=== PATIENT | female | born 1980 | race Caucasian/White ===

== ENCOUNTER 2021-02-15 16:07 | Emergency (ER) | payer OTHER ==
[~2021-02-15] VITALS: Ht 162.6 cm; Wt 72.6 kg
[2021-02-15 16:30] VITALS: BP 127/79
[2021-02-15 16:37] VITALS: BP 127/79
--- NOTE | 2021-02-15 16:38 | ER.PDOC ---
General Chief Complaint: Abdomen Pain Stated Complaint: FLANK PAIN Time seen by MD: 16:37 Source: patient Exam Limitations: no limitations History of Present Illness Initial Comments Bilateral flank pain for the last couple of days. No fever or chills. No nausea, vomiting or diarrhea. Severity/Quality: moderate, sharpness Radiation: no radiation Associated Symptoms: denies symptoms Exacerbated by: nothing Relieved By: nothing Vital Signs First Vital Signs Date Time Temp Pulse Resp B/P (MAP) Pulse Ox O2 Delivery O2 Flow Rate FiO2 02/15/21 16:30 98.9 91 18 02/15/21 16:30 97 02/15/21 16:37 127/79 (95) Room Air Last Vital Signs Date Time Temp Pulse Resp B/P (MAP) Pulse Ox O2 Delivery O2 Flow Rate FiO2 02/15/21 16:37 98.9 91 18 127/79 (95) 97 Room Air Past Medical History Medical History: no pertinent history Surgical History: hysterectomy Family History Significant Family History: no pertinent family hx Social History Smoking: non-smoker Alcohol Use: none Drug Use: none Constitutional: no symptoms reported EENTM: no symptoms reported Respiratory: no symptoms reported Cardiovascular: no symptoms reported Gastrointestinal: no symptoms reported Genitourinary: see HPI All Other Systems: Reviewed and Negative Physical Exam General Appearance: No Apparent Distress, WD/WN Neck: Non-Tender, Full Range of Motion, Supple, Normal Inspection Respiratory: chest non-tender, lungs clear, normal breath sounds, no respiratory distress, no accessory muscle use Cardiovascular: Normal Peripheral Pulses, Regular Rate, Rhythm, No Edema, No Gallop, No JVD, No Murmur, Tachycardia Gastrointestinal: Normal Bowel Sounds, Non Tender, Soft Back: CVA Tenderness (R), CVA Tenderness (L) Extremities: Normal Range of Motion, Non-Tender, Normal Inspection, No Pedal Edema, No Calf Tenderness, Normal Capillary Refill, Pelvis Stable Neurologic/Psychiatric: clinic manager II-XII NML as Tested, No Motor/Sensory Deficits, Alert, Normal Mood/Affect, Oriented x 3 Skin: Normal Color, Warm/Dry Lymphatic: No Adenopathy Results/Orders Results/Orders Orders - MICHAEL AHN MD Cbc With Auto Diff (02/15/21 16:35) Comprehensive Metabolic Panel (02/15/21 16:35) Urinalysis (02/15/21 16:35) Ct Abd/Pelvis Wo Iv Contrast (02/15/21 16:35) Urine Culture (02/15/21 16:35) Ceftriaxone Sodium (Rocephin) (02/15/21 17:32) Vital Signs Date Time Temp Pulse Resp B/P (MAP) Pulse Ox O2 Delivery O2 Flow Rate FiO2 02/15/21 16:37 98.9 91 18 127/79 (95) 97 Room Air 02/15/21 16:30 98.9 91 18 97 02/15/21 16:30 98.9 91 18 Laboratory Tests Test 02/15/21 16:30 02/15/21 16:35 Urine Collection Type UNKNOWN Urine Color ORANGE Urine Appearance CLEAR Urine Bilirubin NEGATIVE (NEGATIVE) Urine Ketones NEGATIVE (NEGATIVE) Urine Specific [place] 1.015 (1.005-1.030) Urine pH 7.0 (4.5-8.0) Urine Protein 1+ (NEGATIVE) H Urine Urobilinogen 0.2 E.U./dL (0.2) Urine Nitrate POSITIVE (NEGATIVE) H Urine Leukocyte Esterase 3+ (NEGATIVE) H Urine Glucose (Auto)(UA) NEGATIVE (NEGATIVE) Urine Blood 3+ (NEGATIVE) H Urine RBC 2-5 RBC/HPF (NONE SEEN) Urine WBC TooNumerousToCount WBC/HPF (0-2) Urine Squamous Epithelial Cells FEW (<=FEW) Urine Bacteria FEW (NONE SEEN) H White Blood Count 12.0 10^3/uL (4.5-11.0) H Red Blood Count 4.45 10^6/uL (4.00-5.20) Hemoglobin 12.3 g/dL (12.0-15.0) Hematocrit 38.9 % (36.0-46.0) Mean Corpuscular Volume 87.4 fL (78-100) Mean Corpuscular Hemoglobin 27.6 pg (26-34) Mean Corpuscular Hemoglobin Concent 31.6 g/dL (33-36.5) L Red Cell Distribution Width 13.2 % (11.5-14.5) Platelet Count 380 10^3/uL (150-400) Mean Platelet Volume 11.0 fL (7.8-11.0) Neutrophils (%) (Auto) 69.9 % (41.0-85.0) Lymphocytes (%) (Auto) 23.6 % (24.0-44.0) L Monocytes (%) (Auto) 5.5 % (5.0-12.0) Neutrophils # (Auto) 8.4 10^3/uL (1.8-7.7) H Lymphocytes # (Auto) 2.82 10^3/uL1 (1.0-4.8) Monocytes # (Auto) 0.7 10^3/uL (0.3-0.8) Absolute Immature Granulocyte (auto 0.02 10^3 u/L (0-2) Absolute Eosinophils (auto) 0.1 10^3/uL (0.0-0.2) Immature Granulocytes % 0.20 % (0.00-0.50) Eosinophils % 0.5 % (0.0-5.0) Basophils % 0.3 % (0.0-0.2) H Basophils # 0.0 10^3/uL (0.0-0.1) Sodium Level 139 mmol/L (132-145) Potassium Level 3.3 mmol/L (3.6-5.2) L Chloride Level 101.0 mmol/L (96-109) Carbon Dioxide Level 28.9 mmol/L (20.0-32) Anion Gap 12.4 Blood Urea Nitrogen 4 mg/dL (7-18) L Creatinine 0.88 mg/dL (0.59-1.40) Estimated GFR () 87.0 (>/=60) Est GFR (CKD-EPI)(Non-Afr [place]) 71.9 (>/=60) BUN/Creatinine Ratio 4.0 Glucose Level 100 mg/dL (70-110) Calcium Level 8.5 mg/dL (8.4-10.5) Total Bilirubin 0.3 mg/dL (0.2-1.0) Aspartate Amino Transferase (AST) 17 U/L (0-35) Alanine Aminotransferase (ALT) 19 U/L (12-78) Alkaline Phosphatase 103 U/L (50-136) Total Protein 8.0 g/dL (6.4-8.2) Albumin 3.7 g/dL (3.4-5.0) Globulin 4.3 Albumin/Globulin Ratio 0.860 Progress Progress Patient does not have a fever. WBC is 12 without left shift. Chemistry show a potassium of 3.3. Rest of chemistry is normal. CT abdomen/pelvis shows no acute abnormality. Patient received a gram of Rocephin and will be discharged home on Bactrim. ER DEPART Departure Time of Disposition: 17:35 Disposition: 01 HOME / SELF CARE / HOMELESS Impression: Primary Impression: UTI (urinary tract infection) Condition: Stable Referrals: SANG ALVA (PCP) PRIMARY CARE PROVIDER Additional Instructions: Bactrim DS Ibuprofen Follow-up with your PCP in 2 to 3 days Return to ED if worsening symptoms or concerns Duration or Time Spent with Pa: 45 min Problem Qualifiers Primary Impression: UTI (urinary tract infection) Urinary tract infection type: site unspecified Hematuria presence: with hematuria Qualified Codes: N39.0 - Urinary tract infection, site not specified; R31.9 - Hematuria, unspecified MICHAEL AHN MD Feb 15, 2021 16:38
[2021-02-15 16:41] LABS: BILIRUBIN,URINE NEGATIVE (NEGATIVE); UROBILINOGEN,URINE 0.2 E.U./dL (0.2)
[2021-02-15 16:41] LABS: BASOPHIL % 0.3 % (0.0-0.2); EOSINOPHIL # 0.1 10^3/uL (0.0-0.2); EOSINOPHIL % 0.5 % (0.0-5.0); LYMPHOCYTES # 2.82 10^3/uL1 (1.0-4.8); LYMPHOCYTES % 23.6 % (24.0-44.0); MEAN CORP HGB 27.6 pg (26-34); MONOCYTES # 0.7 10^3/uL (0.3-0.8); MONOCYTES % 5.5 % (5.0-12.0); NEUTROPHIL # 8.4 10^3/uL (1.8-7.7); NEUTROPHILS % 69.9 % (41.0-85.0); PLATELET COUNT 380 10^3/uL (150-400); RED CELL DISTRIBUTION WIDTH 13.2 % (11.5-14.5)
[2021-02-15 16:55] LABS: CALCIUM 8.5 mg/dL (8.4-10.5); CARBON DIOXIDE 28.9 mmol/L (20.0-32)
--- NOTE | 2021-02-15 17:11 | DIREP ---
PROCEDURE:CT ABDOMEN/PELVIS W/O CONTRAST COMPARISON:None. INDICATIONS:Bilateral flank pain, NO HX, HEMATURIA TECHNIQUE:Axial images were created through the abdomen and pelvis without intravenous contrast material. No oral contrast was administered. Sagittal and coronal reconstructions were performed from source images. FINDINGS: LUNG BASES:Normal. No visible pulmonary or pleural disease. LIVER:Normal. No significant liver lesions are identified. BILIARY:Apparent cholecystectomy PANCREAS:Normal. No lesion, fluid collection, ductal dilatation, or atrophy. SPLEEN:Normal. No enlargement or focal lesion. ADRENALS:Normal. No mass or enlargement. URINARY TRACT:Normal. No focal lesions or hydronephrosis. AORTA/VASCULAR:Normal. No aneurysm. RETROPERITONEUM:Normal. No mass or adenopathy. BOWEL/MESENTERY:The appendix is visualized and appears normal. There is no intestinal obstruction, free fluid, free air or mesenteric inflammatory changes. ABDOMINAL WALL:Normal. No mass or hernia. PELVIC ORGANS:The uterus is surgically absent. No visible mass. BONES:Normal for age. No bony lesion or acute fracture. OTHER:Negative. CONCLUSION:No acute disease. Dictated by: Floyd Ortiz MD on 02/15/2021 at 05:03 PM
[2021-02-15] MEDS ORDERED: ROCEPHIN 1,000 MG in NS 100ML 100 ML IV STA (17:32)
[2021-02-15] MEDS ORDERED: ROCEPHIN ONE (17:35)
[2021-02-15 17:50] VITALS: BP 121/71
== END 2021-02-15 17:50 | disposition home or self-care (01) ==
LOC: ER 16:07
DX: N39.0 Urinary tract infection, site not specified (principal); Z90.710 Acquired absence of both cervix and uterus
CPT/HCPCS: 36415; 74176; 80053; 81001; 85025; 87086; 96365; 99284; J0696 ×2

== ENCOUNTER 2024-12-15 17:25 | Emergency (ER) | payer OTHER ==
[~2024-12-15] VITALS: Ht 160 cm; Wt 72.6 kg
[2024-12-15 17:25] VITALS: BP 132/95; PULSE 80; RESP 18; TEMP 98.3; O2SAT 100
[2024-12-15] MEDS ORDERED: LIDOCAINE 1% VIAL ONE (17:48)
[2024-12-15] MEDS ORDERED: ZOFRAN ODT ONE (18:01)
[2024-12-15] MEDS: ZOFRAN ODT SL STA (18:05)
[2024-12-15 18:15] VITALS: BP 131/85; PULSE 80; RESP 18; TEMP 98.3; O2SAT 99
[2024-12-15] MEDS ORDERED: TRIPLE ANTIBIOTIC OINTMENT PKT TP ONE (18:18)
[2024-12-15] MEDS: NORCO 7.5 PO STA (18:32)
[2024-12-15] MEDS: KEFLEX PO STA (18:32)
[2024-12-15] MEDS ORDERED: KEFLEX PO ONE (18:37)
[2024-12-15] MEDS ORDERED: NORCO 7.5 PO ONE (18:38)
[2024-12-15 18:54] VITALS: BP 118/88; PULSE 79; RESP 18; TEMP 98.3; O2SAT 100
== END 2024-12-15 18:39 | disposition home or self-care (01) ==
LOC: ER 17:25
DX: S61.210A Laceration without foreign body of right index finger without damage to nail, initial encounter (principal); Z90.49 Acquired absence of other specified parts of digestive tract; Z90.710 Acquired absence of both cervix and uterus; X58.XXXA Exposure to other specified factors, initial encounter; Y93.89 Activity, other specified; Y92.89 Other specified places as the place of occurrence of the external cause; Y99.8 Other external cause status
CPT/HCPCS: 99284; 12001; A4649; J2003; J8499